=== PATIENT | female | born 1950 | race Caucasian/White ===

== ENCOUNTER 2022-10-24 11:50 | Emergency (ER) | payer MEDICARE, OTHER ==
[~2022-10-24] VITALS: Ht 167.6 cm; Wt 54.5 kg
[2022-10-24 12:43] VITALS: TEMP 99.1
[2022-10-24] MEDS ORDERED: ACETAMINOPHEN 325 MG TABLET PO ONE (13:00)
[2022-10-24 13:16] LABS: BASOPHILS % (AUTO) 0.9 % (0.0-2.0); HEMATOCRIT 34.9 % (36-46); HEMOGLOBIN 11.4 g/dL (12.0-16.0); LYMPHOCYTES # (AUTO) 1.2 K/uL (1.0-4.8); MEAN CORPUSCULAR HEMOGLOBIN 28.3 pg (26.0-34.0); MEAN CORPUSCULAR HGB CONC 32.7 G/dL (31.0-37.0); MEAN CORPUSCULAR VOLUME 87 fL (80-100); MONOCYTES # (AUTO) 0.5 K/uL (0.1-1.0); MONOCYTES % (AUTO) 12.5 % (2.0-9.0); NEUTROPHILS # (AUTO) 2.2 K/uL (1.8-7.7); NEUTROPHILS % (AUTO) 55.6 % (40.0-70.0); PLATELET COUNT (AUTO) 135 K/uL (150-450); RED BLOOD CELL COUNT(AUTO) 4.03 MIL/uL (4.00-5.20)
[2022-10-24 13:20] LABS: ANION GAP 4 mmol/L (8-16); CARBON DIOXIDE 31 mmol/L (22-29); CHLORIDE 100 mmol/L (98-107); CREATININE 0.57 mg/dL (0.60-1.30); GLOMERULAR FILTR. RATE CALC > 60 mL/min (>60); GLUCOSE,RANDOM 104 mg/dL (70-110); POTASSIUM 4.3 mmol/L (3.5-5.1); SODIUM SERUM 135 mmol/L (136-145)
[2022-10-24 14:10] VITALS: BP 105/61; PULSE 98; RESP 18
== END 2022-10-24 16:33 | disposition home or self-care (01) ==
LOC: EMS 11:53
DX: U07.1 COVID-19 (principal); F41.9 Anxiety disorder, unspecified; F32.A Depression, unspecified; G89.29 Other chronic pain; M25.551 Pain in right hip; F20.0 Paranoid schizophrenia; Z98.890 Other specified postprocedural states
CPT/HCPCS: 71045; 80048; 85025; 99284; 36415-L1; 36415-TC